=== PATIENT | male | born 1990 | race Caucasian/White ===

== ENCOUNTER 2018-04-03 23:47 | Emergency (ER) | payer SELFPAY ==
[~2018-04-03 23:47] MED LIST: ACE3 PO; ALB17R INH; ALBMDV INH; ALBUTEROL INHALER; ATOM100C2 PO; ATOM80CA3 PO; BUP75 PO; CEFP500T32 PO; CEP500 PO; CEPH500C24 PO; FEX60 PO; FEXO180T74 PO; IBUPROFEN PO; LOR5/325 PO; MON10 PO; MONT10TA22 PO; NAPR-1043 PO; NO ROUTINE MEDS; PER PO; [UNRECOGNIZED DRUG - CODE] PO
[2018-04-03 23:51] VITALS: BP 161/102
[2018-04-04] MEDS ORDERED: ONDANSETRON 4 MG ODT TABDP SL ONE (00:16)
[2018-04-04] MEDS ORDERED: CEPH500C24 PO (00:49)
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
[2018-04-04] MEDS ORDERED: CEPHALEXIN MONO 500 MG CAP PO ONE (00:50)
[2018-04-04] MEDS ORDERED: CEPHALEXIN MONO 500 MG CAP ONE (00:55)
== END 2018-04-04 01:12 | disposition home or self-care (01) ==
LOC: ER 23:50
DX: S61.212A Laceration without foreign body of right middle finger without damage to nail, initial encounter (principal); S61.214A Laceration without foreign body of right ring finger without damage to nail, initial encounter; S61.216A Laceration without foreign body of right little finger without damage to nail, initial encounter; F10.920 Alcohol use, unspecified with intoxication, uncomplicated; W26.0XXA Contact with knife, initial encounter; F17.210 Nicotine dependence, cigarettes, uncomplicated
CPT/HCPCS: 12002; 99283; S0119

== ENCOUNTER 2018-04-04 06:56 | Emergency (ER) | payer SELFPAY ==
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
[2018-04-04 07:46] VITALS: BP 132/75
== END 2018-04-04 07:53 | disposition home or self-care (01) ==
LOC: ER 07:08
DX: S61.212D Laceration without foreign body of right middle finger without damage to nail, subsequent encounter (principal)
CPT/HCPCS: 99283

== ENCOUNTER → 2018-04-04 | Outpatient (CLI) | payer SELFPAY | LOC: AMB 06:40 | PROVIDERS: ATTEND Nurse Practitioner | DX: S61.411A Laceration without foreign body of right hand, initial encounter (principal); F10.129 Alcohol abuse with intoxication, unspecified | CPT/HCPCS: A0425; A0429 ==

== ENCOUNTER 2018-04-05 07:27 | Emergency (ER) | payer SELFPAY ==
[2018-04-05 07:32] VITALS: BP 119/95
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
== END 2018-04-05 07:43 | disposition home or self-care (01) ==
LOC: ER 07:33
DX: S61.211D Laceration without foreign body of left index finger without damage to nail, subsequent encounter (principal)
CPT/HCPCS: 99281

== ENCOUNTER 2018-04-18 09:49 | Emergency (ER) | payer SELFPAY ==
--- NOTE | 2018-04-18 09:51 | ER Report ---
History and Physical Time Seen By MD: 09:50 HPI/ROS CHIEF COMPLAINT: Suture removal HISTORY OF PRESENT ILLNESS: Patient is 27-year-old male who was recently seen on April 05 for hand laceration. He returns today for suture removal. He he states that he's noticed his 4th finger of his left hand has difficulty with flexion at the proximal interphalangeal joint. He also reports some numbness to the distal tip of the 4th finger. All the other fingers are normal. Allergies: Coded Allergies: No Known Drug Allergies (Verified , 04/18/18) Uncoded Allergies: CATS (Allergy, Mild, HIVES THEOAT ITCHY, 06/08/11) PEACHES (Allergy, Mild, THROAT SCRATCHY, 06/08/11) Home Meds Active Scripts Cephalexin Monohydrate (CEPHALEXIN) 500 Mg Cap, 500 MG PO TID for infection, # 20 CAP TAKE 1 CAPSULE BY MOUTH EVERY SIX HOURS Prov:BEN DECKER DO 04/04/18 Hx Smoking: Yes Smoking Status: Current: Every Day Smoker Hx Substance Use Disorder: No Hx Alcohol Use: No Constitutional Vital Sign - Last 24 Hours 04/18/18 09:52 Temp 97.7 Pulse 92 Resp 20 B/P (MAP) 119/84 Pulse Ox 93 O2 Delivery Room Air Physical Exam General appearance: Alert no distress. \Examination of hand reveals a good interval healing and no evidence of wound infection. We will remove sutures at this time. Patient does have slightly decreased range of motion to the proximal interphalangeal joint of the 4th digit and subjective decreased sensation to the pad of the 4th finger. 2nd 3rd and 5th fingers have normal range of motion and sensation. [DIFFERENTIAL DIAGNOSIS: After history and physical exam differential diagnosis was considered for] [ ] Medical Decision Making ED Course/Re-evaluation ED Course Plan this time will be to have the patient have sutures removed. We'll refer to hand specialist for evaluation 4th finger Decision to Disposition Date: Apr 18, 2018 Decision to Disposition Time: 10:01 Depart Departure Latest Vital Signs Vital Signs Date Time Temp Pulse Resp B/P (MAP) Pulse Ox O2 Delivery O2 Flow Rate FiO2 04/18/18 09:52 97.7 92 20 119/84 93 Room Air Impression: Primary Impression: Encounter for removal of sutures Condition: Improved Disposition: HOME OR SELF-CARE Referrals: DEMAR TIDWELL MD (PCP) LATOYA HERNANDEZ MD Call to schedule a follow-up appointment for evaluation of your 4th finger Patient Instructions: Stitches Removal (DC) Additional Instructions: Call to schedule a follow-up appointment with Dr. Hernandez who is a hand specialist , for evaluation of the decreased range of motion to her 4th finger BINA JIMÉNEZ MD Apr 18, 2018 09:50
[2018-04-18 09:52] VITALS: BP 119/84
== END 2018-04-18 10:08 | disposition home or self-care (01) ==
LOC: ER 09:55
DX: S61.412D Laceration without foreign body of left hand, subsequent encounter (principal)
CPT/HCPCS: 99281

== ENCOUNTER 2018-07-16 10:44 | Emergency (ER) | payer SELFPAY ==
[2018-07-16 10:46] VITALS: BP 167/93
--- NOTE | 2018-07-16 10:54 | ER Report ---
History and Physical Time Seen By MD: 10:54 Hx. of Stated Complaint: LEFT INDEX LACERATION FROM GLASS BOTTLE. HPI/ROS CHIEF COMPLAINT: laceration left index finger HISTORY OF PRESENT ILLNESS: This is a 27 year old male. He cut his left index finger on a glass bottle. last tetanus was 2014. Normal sensation and movement. Allergies: Coded Allergies: No Known Drug Allergies (Verified , 04/18/18) Uncoded Allergies: CATS (Allergy, Mild, HIVES THEOAT ITCHY, 06/08/11) PEACHES (Allergy, Mild, THROAT SCRATCHY, 06/08/11) Home Meds Active Scripts Cephalexin Monohydrate (CEPHALEXIN) 500 Mg Cap, 500 MG PO Q6H, #20 CAP 0 Refills Prov:MELLISA RHOADES MD 07/16/18 Discontinued Scripts Cephalexin Monohydrate (CEPHALEXIN) 500 Mg Cap, 500 MG PO TID for infection, #20 CAP TAKE 1 CAPSULE BY MOUTH EVERY SIX HOURS Prov:BEN DECKER DO 04/04/18 Reviewed Nurses Notes: Yes Hx Smoking: Yes Smoking Status: Current: Every Day Smoker Hx Substance Use Disorder: No Hx Alcohol Use: No Constitutional Vital Sign - Last 24 Hours 07/16/18 10:46 Temp 99.0 Pulse 72 Resp 18 B/P (MAP) 167/93 Pulse Ox 94 O2 Delivery Room Air Physical Exam General: Alert, no acute distress. Skin: 3.5cm laceration radial side of left index finger. Musculoskeletal: Normal strength and motor. Neuro: Normal sensation. Cardiovascular: Normal cap refill. Medical Decision Making ED Course/Re-evaluation ED Course Procedure: Laceration Repair Verbal consent from patient after discussing repair options, risks and benefits. Wound cleaned extensively with Hibiclens and saline. Anesthesia: 1% lidocaine without epinephrine, and 0.25% bupivacaine without epinephrine. Location: left index finger. Length: 3.5cm. Character: linear to subcutaneous. There were no deep structures involved. No tendon injury was identified. Wound repair: running 4-0 Ethilon. The wound repair was simple and performed by myself. Wound care instructions discussed. Sutures need to be removed in 7 days. Cephalexin 500mg four times a day for 5 days. Decision to Disposition Date: Jul 16, 2018 Decision to Disposition Time: 11:54 Depart Departure Latest Vital Signs Vital Signs Date Time Temp Pulse Resp B/P (MAP) Pulse Ox O2 Delivery O2 Flow Rate FiO2 07/16/18 10:46 99.0 72 18 167/93 94 Room Air Impression: Primary Impression: Laceration of finger of left hand Condition: Improved Disposition: HOME OR SELF-CARE New Scripts Cephalexin Monohydrate (CEPHALEXIN) 500 Mg Cap 500 MG PO Q6H, #20 CAP 0 Refills Prov: MELLISA RHOADES MD 07/16/18 Patient Instructions: Finger Laceration (ED) Additional Instructions: Wound Care: Wash the wound once a day with soap and water. Dry the wound and a pply a small amount of antibiotic ointment with a clean dressing. If the dressing becomes wet or dirty, repeat cleaning and dressing as above. No soaking the wound; no swimming. Stitches need to be removed in 5-7 days. Pain Control: Use Tylenol or ibuprofen for pain. Using and ice pack can help reduce swelling. Antibiotic: Cephalexin 500mg 4 times a day for 5 days. Problem Qualifiers Primary Impression: Laceration of finger of left hand Encounter type: initial encounter Finger: index finger Damage to nail status: without damage Foreign body presence: without foreign body Qualified Codes: S61.211A - Laceration without foreign body of left index finger without damage to nail, initial encounter MELLISA RHOADES MD Jul 16, 2018 10:54
[2018-07-16] MEDS ORDERED: diphenhydrAMINE 50 MG/ML VIAL IVP ONE (11:05)
[2018-07-16] MEDS ORDERED: CEPH500C24 PO (11:54)
== END 2018-07-16 12:06 | disposition home or self-care (01) ==
LOC: ER 10:45
DX: S61.211A Laceration without foreign body of left index finger without damage to nail, initial encounter (principal)
CPT/HCPCS: 99282